=== PATIENT | male | born 1975 | race Caucasian/White ===

== ENCOUNTER → 2022-07-26 | Outpatient (CLI) | payer OTHER ==
[~2022-07-26] MED LIST: BENADRYL50 MG PO; DEPAKOTE ER 50500 MG PO; DESYREL DIVIDO150 M1 PO; NAPROSYN500 MG PO; RISPERDAL 1M1 MG/TAB PO; WELLBUTRIN XL300 M1 PO
== END ==
LOC: COL.RAD 09:25
DX: Z02.71 Encounter for disability determination (principal); M25.512 Pain in left shoulder

== ENCOUNTER 2022-08-27 13:48 | Emergency (ER) | payer MEDICAID ==
[~2022-08-27] VITALS: Ht 190.5 cm; Wt 113.6 kg
[2022-08-27 13:54] VITALS: BP 119/80; PULSE 115; TEMP 97.8
[2022-08-27] MEDS ORDERED: TRILEPTAL 300M300 MG PO (14:29)
[2022-08-27] MEDS ORDERED: XANAX 0.5MG0.5 MG PO (14:30)
[2022-08-27] MEDS ORDERED: XANAX2 MG PO (14:31)
[2022-08-27 16:12] LABS: COLLECTION METHOD CLEAN CATCH
[2022-08-27 16:22] LABS: URINE APPEARANCE Clear (CLEAR/HAZY); URINE COLOR Yellow (YELLOW)
[2022-08-27 16:23] LABS: PH 5.5 (5.0-8.5); URINE BLOOD Negative (NEGATIVE); URINE GLUCOSE Negative (NEGATIVE); URINE KETONE Negative (NEGATIVE); URINE NITRATE Negative (NEGATIVE); URINE PROTEIN(semi-quant) Negative (NEGATIVE); URINE UROBILINOGEN 0.2 E.U/dL (0.2-1.0)
[2022-08-27 16:27] LABS: TRICYCLIC ANTIDEPRESS URINE NEGATIVE
[2022-08-27 17:04] LABS: SQUAMOUS EPITHELIAL None Seen /hpf (0-10); URINE BACTERIA None Seen /hpf (NONE SEEN); URINE RBC None Seen /hpf (0-2)
== END 2022-08-27 18:20 | disposition home or self-care (01) ==
LOC: COL.ER 13:48
PROVIDERS: Physician Assistant
DX: F31.9 Bipolar disorder, unspecified (principal); F15.10 Other stimulant abuse, uncomplicated; F17.200 Nicotine dependence, unspecified, uncomplicated